=== PATIENT | male | born 1990 | race Two or more races ===

== ENCOUNTER 2017-12-21 05:49 | Emergency (ER) | payer MEDICAID ==
[~2017-12-21] VITALS: Ht 167.6 cm; Wt 52.0 kg
[2017-12-21] MEDS ORDERED: IBUPROFEN 600MG TABLET PO ONE (09:15)
[2017-12-21 09:39] VITALS: BP 108/64
== END 2017-12-21 09:41 | disposition home or self-care (01) ==
LOC: ER 05:49
DX: M54.5 Low back pain (principal); Y04.0XXA Assault by unarmed brawl or fight, initial encounter; Y93.89 Activity, other specified; Y92.89 Other specified places as the place of occurrence of the external cause; Y99.8 Other external cause status
CPT/HCPCS: 99283

== ENCOUNTER 2019-07-13 11:33 | Emergency (ER) | payer SELFPAY ==
[~2019-07-13] VITALS: Ht 167.6 cm; Wt 59.0 kg
[2019-07-13] MEDS ORDERED: IBUPROFEN 800MG TABLET PO ONE (12:30)
[2019-07-13 13:53] VITALS: BP 118/76
== END 2019-07-13 13:55 | disposition home or self-care (01) ==
LOC: ER 11:33
DX: S60.221A Contusion of right hand, initial encounter (principal); J06.9 Acute upper respiratory infection, unspecified; Y04.0XXA Assault by unarmed brawl or fight, initial encounter; Y93.89 Activity, other specified; Y92.89 Other specified places as the place of occurrence of the external cause
CPT/HCPCS: 73120; 99283

== ENCOUNTER 2023-09-24 13:37 | Emergency (ER) | payer BC, MEDICAID ==
[~2023-09-24] VITALS: Ht 172.7 cm; Wt 64.0 kg
[2023-09-24 14:06] VITALS: O2SAT 98
[2023-09-24] MEDS ORDERED: KETOROLAC 30MG/ML VIAL IM ONE (15:30)
[2023-09-24] MEDS ORDERED: TOPUD MT (15:30)
[2023-09-24] MEDS ORDERED: NAPR-681 MT (15:30)
[2023-09-24] MEDS ORDERED: HYDROCODONE/ACETAMINOPHEN 5/325MG TABLET PO ONE (15:30)
[2023-09-24 16:19] VITALS: BP 127/76; PULSE 79; RESP 18; TEMP 98
== END 2023-09-24 16:20 | disposition home or self-care (01) ==
LOC: ER 15:00
DX: R68.84 Jaw pain (principal); R51.9 Headache, unspecified
CPT/HCPCS: 96372; 99285; J1885; Z7610 ×2